=== PATIENT | male | born 1960 | race Two or more races ===

== ENCOUNTER 2017-01-15 04:27 | Inpatient (IN) | payer MEDICAID ==
[~2017-01-15] VITALS: Ht 172.7 cm; Wt 83.3 kg
[~2017-01-15 04:27] MED LIST: EMTRTAB7 PO
[2017-01-15] MEDS ORDERED: SODIUM CHLORIDE 0.9% 1,000 ML IV ONE (07:30)
[2017-01-15] MEDS ORDERED: KETOROLAC TROMETH 30 MG/ML 1ML VIAL IV ONE (07:30)
[2017-01-15 08:19] LABS: Basophils # (auto) 0 uL; Basophils % (auto) 0.2 % (0.0-2.0); Eosinophils # (auto) 0.1 uL; Eosinophils % (auto) 1.3 % (0.0-7.0); Hemoglobin 13.1 g/dL (13.5-17.5); Lymphocytes # (auto) 1.3 uL; Lymphocytes % (auto) 19.5 % (10.0-50.0); Mean Corpuscular Hemoglobin 31.5 pg (28.0-32.0); Mean Corpuscular Hgb Conc. 32.6 g/dL (32.0-36.0); Mean Corpuscular Volume 96.7 fL (80.0-100.0); Mean Platelet Volume 8.2 fL (7.4-10.4); Monocytes # (auto) 0.8 uL; Monocytes % (auto) 11.1 % (0.0-12.0); Neutrophils # (auto) 4.6 uL; Neutrophils % (auto) 67.9 % (37.0-80.0); Platelet Count (auto) 279 10^3/uL (140-450); Red Cell Distribution Width 13.2 % (11.6-16.0); White Blood Cell 6.8 10^3/uL (4.4-10.8)
[2017-01-15 08:20] LABS: Albumin 3.6 g/dL (3.4-5.0); BUN/Creatinine Ratio 17.5; Calcium 8.6 mg/dL (8.5-10.1); Potassium 4.5 mmol/L (3.5-5.1)
[2017-01-15 08:30] LABS: Bilirubin, Total 2.2 mg/dL (0.2-1.0); Total Protein 6.8 g/dL (6.4-8.2)
[2017-01-15] MEDS ORDERED: ONDANSETRON HCL 4 MG/2 ML VIAL IV ONE (10:30)
[2017-01-15] MEDS ORDERED: MORPHINE SULFATE 4 MG/ML SYRG IV ONE (10:30)
[2017-01-15] MEDS ORDERED: ASPirin 81 mg TAB PO ONE (10:30)
[2017-01-15 12:01] LABS: B-Type Natriuretic Peptide 2399.85 pg/mL (0-100); Temperature: 24.5 C (20.0-25.0)
[2017-01-15] MEDS ORDERED: DEXTROSE (50%) 50ML SYRG IV PRN (12:45)
[2017-01-15] MEDS ORDERED: HYDROcodone-ACET 5/325MG TAB PO PRN (12:45)
[2017-01-15] MEDS ORDERED: ONDANSETRON HCL 4 MG/2 ML VIAL IV PRN (12:45)
[2017-01-15] MEDS ORDERED: DOCUSATE SOD 100 MG CAP PO PRN (12:45)
[2017-01-15] MEDS ORDERED: ACETAMINOPHEN 325 MG TAB PO PRN (12:45)
[2017-01-15] MEDS ORDERED: TROLAMINE SALICYLATE 10% TOP CREAM TOP PRN (12:45)
[2017-01-15] MEDS ORDERED: TEMAZEPAM 15 MG CAP PO PRN (12:45)
[2017-01-15] MEDS ORDERED: MULTIPLE VITAMIN TAB PO ONE (13:00)
[2017-01-15] MEDS ORDERED: FUROSEMIDE 20 MG TAB PO ONE (13:00)
[2017-01-15] MEDS ORDERED: POTASSIUM CHLORIDE 8 MEQ TAB PO ONE (13:00)
[2017-01-15] MEDS ORDERED: KETOROLAC TROMETH 30 MG/ML 1ML VIAL IV PRN (13:00)
[2017-01-15] MEDS: EMTRICITABINE-TENOFOVIR 200/300MG(TRUVADA) PO SCH (13:02)
[2017-01-15] MEDS ORDERED: ATAZ1TAB PO (14:16)
[2017-01-15] MEDS: SODIUM CHLOR 0.9% PF (SALINE LOCK) 10ML VIAL IV SCH ×2 (14:19→21:42)
[2017-01-15] MEDS: EVOTAZ PO SCH (14:22)
[2017-01-15 15:30] VITALS: BP 106/77
[2017-01-15] MEDS: MORPHINE SULF INJ 2 MG/ML SYRINGE 1ML IV PRN (16:07)
[2017-01-15 16:45] VITALS: BP 109/70
[2017-01-15] MEDS: InsuLIN REG 1unit/0.01ml Soln (100units/ml) SC SCH ×2 (17:00→21:42)
[2017-01-15] MEDS: ACCU-CHEK COMFORT CURVE STRIP VI SCH ×2 (18:01→21:43)
[2017-01-15 22:00] VITALS: BP 112/71
[2017-01-16] MEDS: MORPHINE SULF INJ 2 MG/ML SYRINGE 1ML IV PRN (03:33)
[2017-01-16 05:00] VITALS: BP 108/71
[2017-01-16] MEDS: SODIUM CHLOR 0.9% PF (SALINE LOCK) 10ML VIAL IV SCH (05:33)
[2017-01-16] MEDS: ACCU-CHEK COMFORT CURVE STRIP VI SCH (06:04)
[2017-01-16] MEDS: InsuLIN REG 1unit/0.01ml Soln (100units/ml) SC SCH (06:04)
[2017-01-16 06:38] LABS: Basophils # (auto) 0 uL; Basophils % (auto) 0.5 % (0.0-2.0); Eosinophils # (auto) 0.1 uL; Eosinophils % (auto) 1.2 % (0.0-7.0); Hematocrit 41.3 % (41.0-53.0); Hemoglobin 13.4 g/dL (13.5-17.5); Lymphocytes # (auto) 2.3 uL; Lymphocytes % (auto) 28.8 % (10.0-50.0); Mean Corpuscular Hemoglobin 31.8 pg (28.0-32.0); Mean Corpuscular Hgb Conc. 32.4 g/dL (32.0-36.0); Mean Platelet Volume 8.3 fL (7.4-10.4); Monocytes % (auto) 11.9 % (0.0-12.0); Neutrophils # (auto) 4.6 uL; Neutrophils % (auto) 57.6 % (37.0-80.0); Platelet Count (auto) 279 10^3/uL (140-450); Red Cell Distribution Width 13.5 % (11.6-16.0)
[2017-01-16 07:03] LABS: Albumin 3.5 g/dL (3.4-5.0); Calcium 8.4 mg/dL (8.5-10.1); Potassium 5.5 mmol/L (3.5-5.1)
[2017-01-16 07:07] LABS: Bilirubin, Total 2.6 mg/dL (0.2-1.0); Total Protein 6.7 g/dL (6.4-8.2)
[2017-01-16 08:50] VITALS: BP 111/79
[2017-01-16] MEDS: EMTRICITABINE-TENOFOVIR 200/300MG(TRUVADA) PO SCH (09:09)
[2017-01-16] MEDS: EVOTAZ PO SCH (09:10)
[2017-01-16] MEDS ORDERED: PATIENTS OWN MEDICATION PO SCH ×4 (10:00)
[2017-01-16] MEDS ORDERED: MULTIPLE VITAMIN TAB PO SCH (10:00)
[2017-01-16] MEDS ORDERED: FUROSEMIDE 20 MG TAB PO SCH (10:00)
[2017-01-16] MEDS ORDERED: POTASSIUM CHLORIDE 8 MEQ TAB PO SCH (10:00)
[2017-01-16 10:20] LABS: Hepatitis B Surface Antibody Positive
== END 2017-01-16 12:35 | disposition left against medical advice (07) | DRG 347 ==
LOC: ER 04:27 → OVERFLOW 04:28 → WEST WING 14:50
PROVIDERS: ADMIT Internal Medicine; ATTEND Internal Medicine
DX: M47.892 Other spondylosis, cervical region (principal); I50.33 Acute on chronic diastolic (congestive) heart failure; B20 Human immunodeficiency virus [HIV] disease; R65.10 Systemic inflammatory response syndrome (SIRS) of non-infectious origin without acute organ dysfunction; E11.21 Type 2 diabetes mellitus with diabetic nephropathy; I13.0 Hypertensive heart and chronic kidney disease with heart failure and stage 1 through stage 4 chronic kidney disease, or unspecified chronic kidney disease; K76.0 Fatty (change of) liver, not elsewhere classified; D63.8 Anemia in other chronic diseases classified elsewhere; N18.2 Chronic kidney disease, stage 2 (mild); F17.210 Nicotine dependence, cigarettes, uncomplicated; M25.78 Osteophyte, vertebrae; M48.00 Spinal stenosis, site unspecified; N18.9 Chronic kidney disease, unspecified; Z90.89 Acquired absence of other organs; F12.90 Cannabis use, unspecified, uncomplicated; F15.90 Other stimulant use, unspecified, uncomplicated; N50.1 Vascular disorders of male genital organs; Z53.21 Procedure and treatment not carried out due to patient leaving prior to being seen by health care provider
CPT/HCPCS: 36415; 71250; 72125; 80053; 80307; 82962; 83036; 83880; 84443; 84484; 85025; 86704; 86706; 86708; 86803; 87340; 93005; 93306; 96361; 96374; 96375; 99291; J1885; J2405

== ENCOUNTER 2017-02-26 02:57 | Inpatient (IN) | payer MEDICAID ==
[~2017-02-26] VITALS: Ht 177.8 cm; Wt 99.8 kg
[~2017-02-26 02:57] MED LIST changes: +ATAZ1TAB PO
[2017-02-26] MEDS ORDERED: ATROPINE SULFATE 0.4 MG/1 ML VIAL ONE (03:33)
[2017-02-26] MEDS ORDERED: ETOMIDATE (2MG/ML) 20ML VIAL IV ONE (03:52)
[2017-02-26] MEDS ORDERED: SUCCINYLCHOLINE CHLORIDE 20 MG/ML 10ML VIAL IV ONE (03:52)
[2017-02-26] MEDS: DOPamine 1600MCG/ML 250 ML IV SCH ×2 (04:00→19:27)
[2017-02-26] MEDS ORDERED: SODIUM BICARBONATE 8.4% INJ 50ML SYRINGE ONE (04:07)
[2017-02-26 04:10] LABS: Partial Thromboplastin Time 27.6 sec (22.64-33.71)
[2017-02-26 04:14] LABS: INR 1.46 (0.9-1.15)
[2017-02-26 04:36] LABS: Amylase 30 U/L (25-115)
[2017-02-26 04:37] LABS: Albumin 2.7 g/dL (3.4-5.0); BUN/Creatinine Ratio 9.8; Calcium 7.7 mg/dL (8.5-10.1); Magnesium 2.2 mg/dL (1.6-2.6); Potassium 3.8 mmol/L (3.5-5.1)
[2017-02-26 04:39] LABS: Allen Test Modified; Base Excess -15.2 mmol/L (-2.0-2.0); Blood 02Sat 96.9 % (96-100); Blood COHb 0.3 % (0.5-1.5); Blood MetHb 0.2 % (0.0-1.5); HCO3 8.8 mmol/L (22-26.0); HHb 3.1 % (0.0-5.0); MODE AMBU BAG; O2Hb 96.4 % (94.0-97.0); PCO2 18.3 mmHg (35.0-45.0); PCO2(T) 17.8 mmHg (35.0-45.0); PO2 110.4 mmHg (80.0-100.0); PO2(T) 106.8 mmHg (80.0-100.0); Sample Type Arterial; pH 7.298 (7.350-7.450)
[2017-02-26 04:42] LABS: Bilirubin, Total 2.7 mg/dL (0.2-1.0); Total Protein 6.4 g/dL (6.4-8.2)
[2017-02-26] MEDS ORDERED: DOPamine 1600MCG/ML 250 ML IV ONE ×2 (04:45→22:52)
[2017-02-26] MEDS ORDERED: SODIUM CHLORIDE 0.9% 3,000 ML IV ONE ×2 (04:45→05:45)
[2017-02-26] MEDS ORDERED: MIDAZOLAM DRIP 100 mg/100mL NS 100 ML IV SCH (04:47)
[2017-02-26] MEDS ORDERED: NOREPINEPHRINE BITARTRATE 250 ML IV ONE (04:54)
[2017-02-26] MEDS ORDERED: MIDAZOLAM DRIP 100 mg/100mL NS 100 ML IV ONE (04:54)
[2017-02-26 04:56] VITALS: BP 67/28
[2017-02-26] MEDS ORDERED: NOREPINEPHRINE BITARTRATE 250 ML IV SCH ×2 (05:00→05:12)
[2017-02-26 05:09] LABS: B-Type Natriuretic Peptide 4641.63 pg/mL (0-100)
[2017-02-26 05:40] LABS: Temperature: 21.9 C (20.0-25.0)
[2017-02-26 06:19] LABS: Basophils # (auto) 0.1 uL; Basophils % (auto) 0.7 % (0.0-2.0); CONDITION AutoValidated; Eosinophils # (auto) 0 uL; Eosinophils % (auto) 0.3 % (0.0-7.0); Hematocrit 46.2 % (41.0-53.0); Hemoglobin 14.8 g/dL (13.5-17.5); Lymphocytes # (auto) 3.3 uL; Lymphocytes % (auto) 32.4 % (10.0-50.0); Mean Corpuscular Hemoglobin 29.1 pg (28.0-32.0); Mean Corpuscular Volume 90.9 fL (80.0-100.0); Mean Platelet Volume 8.8 fL (7.4-10.4); Monocytes # (auto) 1.1 uL; Monocytes % (auto) 10.8 % (0.0-12.0); Neutrophils # (auto) 5.6 uL; Neutrophils % (auto) 55.8 % (37.0-80.0); Platelet Count (auto) 193 10^3/uL (140-450); Red Cell Distribution Width 15.9 % (11.6-16.0); White Blood Cell 10.1 10^3/uL (4.4-10.8)
[2017-02-26 06:58] LABS: Allen Test Modified; Base Excess -6.5 mmol/L (-2.0-2.0); Blood 02Sat 92.7 % (96-100); Blood COHb 0.9 % (0.5-1.5); Blood MetHb 0.4 % (0.0-1.5); HCO3 18.9 mmol/L (22-26.0); HHb 7.2 % (0.0-5.0); MODE VENT - A/C; O2Hb 91.5 % (94.0-97.0); PCO2 37.6 mmHg (35.0-45.0); PCO2(T) 37.6 mmHg (35.0-45.0); PIP 28; PO2 80.2 mmHg (80.0-100.0); PO2(T) 80.2 mmHg (80.0-100.0); Sample Type Arterial
[2017-02-26] MEDS ORDERED: SODIUM CHLORIDE 0.9% 1,000 ML IV SCH (07:12)
[2017-02-26] MEDS ORDERED: NITROGLYCERIN 0.4 MG SL TAB SL PRN (07:15)
[2017-02-26] MEDS ORDERED: MORPHINE SULF INJ 2 MG/ML SYRINGE 1ML IV PRN ×4 (07:15)
[2017-02-26] MEDS ORDERED: ALBUMIN 25% 100 ML IV ONE (07:15)
[2017-02-26] MEDS ORDERED: FUROSEMIDE 20 MG/2 ML VIAL IV ONE ×3 (07:15→18:15)
[2017-02-26] MEDS ORDERED: LORazepam 2MG/ML-1ML VIAL IV PRN (07:15)
[2017-02-26] MEDS ORDERED: ONDANSETRON HCL 4 MG/2 ML VIAL IV PRN (07:15)
[2017-02-26] MEDS ORDERED: ACETAMINOPHEN 325 MG TAB PO PRN (07:15)
[2017-02-26] MEDS ORDERED: ALBUTEROL SULF 2.5 MG/0.5ML(0.5%) NEB SOLN NEB PRN (07:15)
[2017-02-26] MEDS ORDERED: PIPERACILLIN-TAZOB 3.375GM 100 ML IV ONE (07:30)
[2017-02-26] MEDS ORDERED: FURO40TA4 PO (07:43)
[2017-02-26] MEDS ORDERED: POTA10SO11 PO (07:43)
[2017-02-26] MEDS ORDERED: LOR05T PO (07:43)
[2017-02-26] MEDS ORDERED: ACYC400T PO (07:43)
[2017-02-26] MEDS ORDERED: BACL20TA PO (07:43)
[2017-02-26] MEDS ORDERED: MELO-86 PO (07:43)
[2017-02-26] MEDS ORDERED: TIZA4CAP5 PO (07:43)
[2017-02-26] MEDS ORDERED: DOCU-94 PO (07:43)
[2017-02-26] MEDS ORDERED: LISI2.5T47 PO (07:43)
[2017-02-26] MEDS ORDERED: CARV6.25 PO (07:43)
[2017-02-26] MEDS ORDERED: ENOXAPARIN SOD 40 MG/0.4 ML SYRINGE SC SCH ×2 (10:00)
[2017-02-26] MEDS ORDERED: COBICISTAT PO SCH (10:00)
[2017-02-26] MEDS ORDERED: FAMOTIDINE (10MG/ML) 2ML VL IV SCH (10:00)
[2017-02-26] MEDS ORDERED: EMTRICITABINE-TENOFOVIR 200/300MG(TRUVADA) PO SCH (10:00)
[2017-02-26] MEDS ORDERED: ATAZANAVIR PO SCH (10:00)
[2017-02-26] MEDS ORDERED: PANTOPRAZOLE SODIUM 40 MG/10 ML VIAL IV SCH (10:00)
[2017-02-26] MEDS ORDERED: LACTULOSE 20Gm/30ML SOLN PO SCH (10:00)
[2017-02-26 10:59] LABS: Urine Bilirubin 1+ (Negative); Urine Color Yellow (Yellow); Urine Glucose TRACE mg/dL (Normal); Urine Ketone Negative (Negative); Urine Nitrite Negative (Negative); Urine RBC 10 /hpf (0 - 3); Urine Sperm PRESENT /hpf (None Seen); Urine Squamous Epithelial Cell FEW /hpf (<5); Urine Urobilinogen Normal (Negative); Urine pH 6.5 (5.0-8.0)
[2017-02-26 11:00] LABS: Urine Blood 2+ /uL (Negative)
[2017-02-26] MEDS: PIPERACILLIN-TAZOB 3.375GM 100 ML IV SCH ×2 (13:00→18:20)
[2017-02-26] MEDS ORDERED: SODIUM CHLORIDE 0.9% 500 ML IV ONE (18:15)
[2017-02-26 18:20] VITALS: BP 124/67
[2017-02-26] MEDS: IPRATROPIUM BROM 0.5 MG/2.5ML INH SOL NEB SCH ×2 (18:25→22:00)
[2017-02-26 20:24] VITALS: BP 112/51
[2017-02-26 21:13] LABS: Allen Test Modified; Base Excess -14.5 mmol/L (-2.0-2.0); Blood 02Sat 96.1 % (96-100); Blood COHb 0.6 % (0.5-1.5); Blood MetHb 0.4 % (0.0-1.5); HCO3 9.6 mmol/L (22-26.0); HHb 3.9 % (0.0-5.0); MODE VENT - A/C; O2Hb 95.1 % (94.0-97.0); PCO2 20.4 mmHg (35.0-45.0); PCO2(T) 23.2 mmHg (35.0-45.0); PO2 98.9 mmHg (80.0-100.0); PO2(T) 117.7 mmHg (80.0-100.0); Room 1025-ERT; Sample Type Arterial
[2017-02-26] MEDS ORDERED: ACETAMINOPHEN 650 MG RECT SUPP PR PRN (21:15)
[2017-02-26] MEDS ORDERED: ACETAMINOPHEN 650 MG RECT SUPP PR ONE (21:16)
[2017-02-26] MEDS ORDERED: ATROPINE SULF 0.5 MG/5ML SYR ONE (21:30)
[2017-02-26] MEDS ORDERED: SODIUM BICARBONATE 8.4 % INJ 50ML VIAL IV ONE (21:30)
[2017-02-26] MEDS ORDERED: DOBUTamine 1000MCG/ML 250 ML IV ONE (22:04)
[2017-02-26 22:11] VITALS: BP 93/54
[2017-02-26] MEDS ORDERED: DOBUTamine 1000MCG/ML 250 ML IV SCH (22:15)
[2017-02-26 22:50] VITALS: BP 68/52
[2017-02-26] MEDS ORDERED: CALCIUM CHLOR(10%) 100MG/ML 10ML SYRINGE IV ONE (22:50)
[2017-02-26] MEDS ORDERED: EPINEPHrine HCL 1 MG/10 ML SYRG IV ONE (22:50)
[2017-02-26] MEDS ORDERED: SODIUM BICARBONATE 8.4% INJ 50ML SYRINGE IV ONE (22:50)
[2017-02-27] MEDS ORDERED: InsuLIN REG 1unit/0.01ml Soln (100units/ml) ONE (00:07)
[2017-02-27 00:10] LABS: BUN/Creatinine Ratio 8.5; Calcium 7.1 mg/dL (8.5-10.1)
[2017-02-27 00:11] LABS: Albumin 1.9 g/dL (3.4-5.0); Total Protein 4.6 g/dL (6.4-8.2)
[2017-02-27] MEDS ORDERED: ENOXAPARIN SOD 30 MG/0.3 ML SYRINGE SC SCH (10:00)
== END 2017-02-27 00:17 | disposition expired | DRG 190 ==
LOC: ER 02:57 → EDBD 02:57 → TELE 02:58
PROVIDERS: ADMIT Nurse Practitioner; ATTEND Internal Medicine
PROC: 5A1935Z Respiratory Ventilation, Less than 24 Consecutive Hours (ICD-10-PCS; principal; 2017-02-26)
PROC: 0BH17EZ Insertion of Endotracheal Airway into Trachea, Via Natural or Artificial Opening (ICD-10-PCS; 2017-02-26)
DX: I21.4 Non-ST elevation (NSTEMI) myocardial infarction (principal); I46.9 Cardiac arrest, cause unspecified; J96.01 Acute respiratory failure with hypoxia; E43 Unspecified severe protein-calorie malnutrition; I50.43 Acute on chronic combined systolic (congestive) and diastolic (congestive) heart failure; K74.60 Unspecified cirrhosis of liver; B19.20 Unspecified viral hepatitis C without hepatic coma; F17.210 Nicotine dependence, cigarettes, uncomplicated; F12.10 Cannabis abuse, uncomplicated; I11.0 Hypertensive heart disease with heart failure; I25.10 Atherosclerotic heart disease of native coronary artery without angina pectoris; W19.XXXA Unspecified fall, initial encounter; J98.11 Atelectasis; Z68.31 Body mass index [BMI] 31.0-31.9, adult; Z90.89 Acquired absence of other organs; Z80.9 Family history of malignant neoplasm, unspecified; Z82.3 Family history of stroke; Z71.89 Other specified counseling
CPT/HCPCS: 31500; 36415; 36600; 51702; 70450; 71010; 72125; 74176; 80053; 80307; 80320; 81001; 82140; 82150; 82805; 83690; 83735; 83880; 84484; 85025; 85610; 85730; 87070; 87205; 92950; 93005; 94002; 94003; 94640; 96360; C9113; J0330; J0461; J1815; J2543